=== PATIENT | female | born 1985 | race Caucasian/White ===

== ENCOUNTER 2017-01-26 15:17 | Emergency (ER) | payer MEDICAID ==
[~2017-01-26] VITALS: Ht 167.6 cm; Wt 79.8 kg
[~2017-01-26 15:17] MED LIST: BACTRIM DS 8001 TAB PO; CELEXA10 MG PO; IRON TABLETS325 MG PO; KEFLEX 500MG.500 MG PO; NIFEDIPINE XL 330 MG PO; NOMEDS XX; PERCOCET 325 MG1 TA4 PO; PHENERGAN 25MG.25 M1 PO; PYRIDIUM 200MG200 MG PO; VICODIN 5/500 T1 TAB PO; VOLTAREN75 MG PO
--- OUTSIDE RECORDS SUMMARY | 2017-01-26 15:25 | External Medical Summary Rpt | CCD ---
Author Author [facility] Address Unknown Phone Purpose Continuity of Care Document - through 2016
--- OUTSIDE RECORDS SUMMARY | 2017-01-26 15:25 | External Medical Summary Rpt | CCD ---
Author Author [employer] Organization [employer] Address Unknown Phone Unavailable Purpose Continuity of Care Document - through 2016
--- OUTSIDE RECORDS SUMMARY | 2017-01-26 15:25 | External Medical Summary Rpt | CCD ---
Demographics Preferred Language Hebrew Marital Status Unknown Amish Affiliation Unknown Race Unknown Ethnic Group Unknown Author Author , [facility] [employer] Address Unknown Phone Immunization No patient found.
--- OUTSIDE RECORDS SUMMARY | 2017-01-26 15:25 | External Medical Summary Rpt | CCD ---
Demographics Preferred Language Kinyarwanda Marital Status Unknown Jewish Affiliation Unknown Race Unknown Ethnic Group Unknown Author Author , [facility] [employer] Address Unknown Phone Immunization No patient found.
--- OUTSIDE RECORDS SUMMARY | 2017-01-26 15:26 | External Medical Summary Rpt ---
Author Author REYES Galvez, [employer] Organization [employer] Address Unknown Phone Unavailable
[2017-01-26 15:40] LABS: URINE BILIRUBIN - DIPSTICK 1+ (NEG); URINE BLOOD 2+ (NEG)
--- NOTE | 2017-01-26 15:49 | Urgent Treatment Center Report ---
History of Present Issue Date/Time Seen by Provider 01/26/17 1541 Visit Reason Pt arrived:Walked Presenting Problem:STATES BLOOD IN URINE BEGAN THIS AM Location if Accident: Onset of symptoms date/time:/ or onset unknown for:MEDICAL HX UNKNOWN Have you (or family members/close friends) recently traveled outside the [place]? N If Yes, where/when: Have you had exposure to infectious disease within the past month? TB? Other? Specify: Patient state that she was in the shower this morning when she began to have pain in her right lower pelvic/abdominal area State that pain was sharp and felt like a ripping pain States that she had to Urinate and when she did she noticed that it looked like blood in the toilet. States that she had recently just got off her period so she got a mirror to check herself and notice that she was dripping what appeared to be blood. States that she has continued to have the sharp ripping pain all day and feeling like she had to go to the bathroom then only urinating small amounts and noticed some blood on the tissue earlier. State that she has some burning with urination however pain has not moved and is constant in her right lower abdominal/pelvic area. ALLERGIES Coded Allergies: NO KNOWN ALLERGIES (11/11/16) Home Medications Reported Medications No Known Home Medications History Medical History General CAD? No Angina: No [place]: No Hypertension? No Hyperlipidemia? No CHF? No DVT? No PE? No COPD? No Asthma? No Anemia? No GERD? No Gastric ulcers? No GI Bleed? No Hernia? No Thyroid Problems? No Hypothyroidism? No CVA? No Seizures? No Diabetes? No Renal Insuffiency? No UTI? No Stones? No BPH? No GB Disease: No Nephritic Syndrome? No Asplenia? No Hepatitis? No Sickle Cell Disease? No Arthritis? No Migraines? No Cataracts? No Glaucoma? No MRSA? No HIV? No TB? No Anxiety? No Depression? No Cancer? No More? 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 Physical Exam Vital Signs Vital Signs Date Time Temp Pulse Resp B/P Pulse O2 O2 Flow FiO2 Ox Delivery Rate 01/26 1541 98.9 90 16 108/85 98 01/26 1526 98.9 90 16 108/85 98 General Appearance normal appearance, WD/WN, no apparent distress Respiratory Status Yes: trachea midline, chest symmetrical, non tender chest. No: respiratory distress. Lung Sounds bilateral: normal breath sounds, lungs clear. Cardiovascular normal exam, regular rate/rhythm Gastrointestinal normal bowel sounds, normal exam, non tender Neurologic alert, normal exam, oriented x 3 Medical Decision Making LABS/Meds/Orders Pt receiving controlled substance in ED? No Results/Orders Laboratory Tests 01/26/17 1528: Urine Color DARK YELLOW, Urine Appearance Clear, Urine pH 6.0, Ur Specific [place] 1.030, Urine Protein TRACE H, Urine Ketones NEGATIVE, Urine Blood 2+ H , Urine Nitrate NEGATIVE, Urine Bilirubin 1+ H, Urine Urobilinogen 2.0, Ur Leukocyte Esterase NEGATIVE, Urine Glucose NEGATIVE Current Medication Orders Sig/Iván Start time Last Medication Dose Route Stop Time Status Admin Sodium Chloride 10 ML PRN PRN 01/26 1545 AC IV 01/27 1540 Orders Procedure Date/time Status DIET-NOTHING BY MOUTH 01/[address] ABD/PELVIS REQ 01/26 1541 Active IV SALINE LOCK 01/26 1541 Active URINALYSIS/COMPLETE 01/26 1541 Active LIPASE 01/26 1541 Active CBC WITH AUTO DIFF 01/26 1541 Active CHEM 12 PROFILE 01/26 1541 Active UTC URINE DIPSTICK 01/26 1528 Complete Progress [facility] Progress Notes Comment UA completed in [place]. Patient transfered to ER for further work up by Dr Bueno if warrented. Patient report give and patient placed in room 8 Departure Departure Time of Disposition 1547 Disposition Still a Patient Clinical Impression Primary Impression: Blood in urine Qualifiers: Hematuria type: unspecified type Qualified Code: R31.9 - Hematuria, unspecified Condition STABLE Prescriptions Current Visit Scripts No Known Home Medications at 1541
--- NOTE | 2017-01-26 15:49 | Urgent Treatment Center Report ---
History of Present Issue Date/Time Seen by Provider 01/26/17 1541 Visit Reason Pt arrived:Walked Presenting Problem:STATES BLOOD IN URINE BEGAN THIS AM Location if Accident: Onset of symptoms date/time:/ or onset unknown for:MEDICAL HX UNKNOWN Have you (or family members/close friends) recently traveled outside the [place]? N If Yes, where/when: Have you had exposure to infectious disease within the past month? TB? Other? Specify: Patient state that she was in the shower this morning when she began to have pain in her right lower pelvic/abdominal area State that pain was sharp and felt like a ripping pain States that she had to Urinate and when she did she noticed that it looked like blood in the toilet. States that she had recently just got off her period so she got a mirror to check herself and notice that she was dripping what appeared to be blood. States that she has continued to have the sharp ripping pain all day and feeling like she had to go to the bathroom then only urinating small amounts and noticed some blood on the tissue earlier. State that she has some burning with urination however pain has not moved and is constant in her right lower abdominal/pelvic area. ALLERGIES Coded Allergies: NO KNOWN ALLERGIES (11/11/16) Home Medications Reported Medications No Known Home Medications History Medical History General CAD? No Angina: No [place]: No Hypertension? No Hyperlipidemia? No CHF? No DVT? No PE? No COPD? No Asthma? No Anemia? No GERD? No Gastric ulcers? No GI Bleed? No Hernia? No Thyroid Problems? No Hypothyroidism? No CVA? No Seizures? No Diabetes? No Renal Insuffiency? No UTI? No Stones? No BPH? No GB Disease: No Nephritic Syndrome? No Asplenia? No Hepatitis? No Sickle Cell Disease? No Arthritis? No Migraines? No Cataracts? No Glaucoma? No MRSA? No HIV? No TB? No Anxiety? No Depression? No Cancer? No More? 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 Physical Exam Vital Signs Vital Signs Date Time Temp Pulse Resp B/P Pulse O2 O2 Flow FiO2 Ox Delivery Rate 01/26 1541 98.9 90 16 108/85 98 01/26 1526 98.9 90 16 108/85 98 General Appearance normal appearance, WD/WN, no apparent distress Respiratory Status Yes: trachea midline, chest symmetrical, non tender chest. No: respiratory distress. Lung Sounds bilateral: normal breath sounds, lungs clear. Cardiovascular normal exam, regular rate/rhythm Gastrointestinal normal bowel sounds, normal exam, non tender Neurologic alert, normal exam, oriented x 3 Medical Decision Making LABS/Meds/Orders Pt receiving controlled substance in ED? No Results/Orders Laboratory Tests 01/26/17 1528: Urine Color DARK YELLOW, Urine Appearance Clear, Urine pH 6.0, Ur Specific [place] 1.030, Urine Protein TRACE H, Urine Ketones NEGATIVE, Urine Blood 2+ H , Urine Nitrate NEGATIVE, Urine Bilirubin 1+ H, Urine Urobilinogen 2.0, Ur Leukocyte Esterase NEGATIVE, Urine Glucose NEGATIVE Current Medication Orders Sig/Iván Start time Last Medication Dose Route Stop Time Status Admin Sodium Chloride 10 ML PRN PRN 01/26 1545 AC IV 01/27 1540 Orders Procedure Date/time Status DIET-NOTHING BY MOUTH 01/[address] ABD/PELVIS REQ 01/26 1541 Active IV SALINE LOCK 01/26 1541 Active URINALYSIS/COMPLETE 01/26 1541 Active LIPASE 01/26 1541 Active CBC WITH AUTO DIFF 01/26 1541 Active CHEM 12 PROFILE 01/26 1541 Active UTC URINE DIPSTICK 01/26 1528 Complete Progress [facility] Progress Notes Comment UA completed in [place]. Patient transfered to ER for further work up by Dr Bueno if warrented. Patient report give and patient placed in room 8 Departure Departure Time of Disposition 1547 Disposition Still a Patient Clinical Impression Primary Impression: Blood in urine Qualifiers: Hematuria type: unspecified type Qualified Code: R31.9 - Hematuria, unspecified Condition STABLE Prescriptions Current Visit Scripts No Known Home Medications at 154
--- NOTE | 2017-01-26 15:58 | Emergency Room Report ---
History of Present Illness Time Seen by 153Nando Presenting Problem in Triage Pt arrived:Walked Presenting Problem:STATES BLOOD IN URINE BEGAN THIS AM ADDENDUM: PT SENT FROM [facility] TO R/O RENAL CALCULI; Onset of symptoms date/time:/ or onset unknown for:MEDICAL HX UNKNOWN Treatment Prior to Arrival: URINALYSIS AT [facility] Provided by:NURSE PRACTITIONER Sepsis Risk Assessment: Temp: 98.9 B/P: 108/85 MAP: 92 Pulse: 90 Resp: 16 Recent fever? N Clinical Suspician of Infection? Y Mental Status: 1 - Regular (Normal Baseline) Sepsis Risk:Low Sepsis Risk Have you (or family members/close friends) recently traveled outside the [place]? N If Yes, where/when: Have you had exposure to infectious disease within the past month? TB? Other? Specify: Comment Patient was seen in the urgent treatment center and sent to the emergency department for evaluation for hematuria. She states that on Wednesday 4 days ago she had some generalized lower back pain and vomiting. That went away and now today she has gross hematuria and a sensation of pain at her urethral meatus. No fever. Slight suprapubic discomfort. No history of kidney stones. She has some dysuria. ALLERGIES Coded Allergies: NO KNOWN ALLERGIES (01/26/17) History Medical History General CAD? No Angina: No [place]: No Hypertension? No Hyperlipidemia? No CHF? No DVT? No PE? No COPD? No Asthma? No Anemia? No GERD? No Gastric ulcers? No GI Bleed? No Hernia? No Thyroid Problems? No Hypothyroidism? No CVA? No Seizures? No Diabetes? No Renal Insuffiency? No End Stage Renal Disease? No UTI? No Stones? No BPH? No GB Disease: No Nephritic Syndrome? No Asplenia? No Hepatitis? No Sickle Cell Disease? No Arthritis? No Migraines? No Cataracts? No Glaucoma? No MRSA? No HIV? No TB? No Anxiety? No Depression? No Cancer? No More? 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 Musculoskeletal back pain Physical Exam Vital Signs Vital Signs Date Time Temp Pulse Resp B/P Pulse O2 O2 Flow FiO2 Ox Delivery Rate 01/26 1823 98.9 63 14 124/74 96 01/26 1808 63 14 124/74 96 01/26 1541 98.9 90 16 108/85 98 01/26 1526 98.9 90 16 108/85 98 General Appearance no apparent distress Eye Exam - bilateral eye normal exam, bilateral eye PERRL, bilateral eye EOMI Ear, Nose, Throat hearing grossly normal, normal ENT inspection Neck normal inspection, non-tender, supple, full range of motion Respiratory Status Yes: trachea midline, chest symmetrical. No: respiratory distress. Lung Sounds bilateral: normal breath sounds, lungs clear. Cardiovascular normal exam, regular rate/rhythm, no peripheral edema, no gallop, no JVD, no murmur, no rub, normal peripheral pulses Peripheral Pulses Pulses normal Yes Gastrointestinal normal bowel sounds, soft, no organomegaly, no guarding, no rebound, tenderness (suprapubic) Back no CVA tenderness Extremities non-tender, normal range of motion, normal inspection Neurologic alert, normal exam, oriented x 3 Mental status normal mood/affect Skin intact, normal color, warm/dry Medical Decision Making LABS/Meds/Orders Pt receiving controlled substance in ED? No Results/Orders Laboratory Tests 01/26/17 1553: Sodium 142, Potassium 3.5, Chloride 106, Carbon Dioxide 26, BUN 10, Creatinine 0.9, Estimated Creat Clear 115, Estimated GFR (MDRD) 74, Glucose 107 H, Calcium 8.7, Total Bilirubin 0.3, AST 20, ALT 22, Alkaline Phosphatase 88, Total Protein 7.4, Albumin 3.9, Globulin 3.5 H, Albumin/Globulin Ratio 1.1, Lipase 132, WBC 9.2, RBC 4.78, Hgb 14.4, Hct 42.7, MCV 89.3, RDW 11.9, Plt Count 307, MPV 7.5, Gran % 54.6, Gran # 5.0, Lymphocytes % 37.5, Monocytes % 5.0, Eosinophils % 2.2, Basophils % 0.6, Lymphocytes # 3.4, Monocytes # 0.5, Eosinophils # 0.2, Basophils # 0.1, PUBS MCHC 33.8, MCH 30.2 01/26/17 1530: Urine Color YELLOW, Urine Appearance CLEAR, Urine pH 6.0, Ur Specific [place] >= 1.030, Urine Protein NEGATIVE, Urine Ketones NEGATIVE, Urine Blood 1+ H, Urine Nitrate NEGATIVE, Urine Bilirubin NEGATIVE, Urine Urobilinogen 1.0, Ur Leukocyte Esterase NEGATIVE, Urine RBC OCC, Urine WBC OCC, Ur Squamous Epith Cells 3-5, Calcium Oxalate Crystal 3+, Urine Bacteria 1+, Urine Mucus 1+, Urine Glucose NEGATIVE 01/26/17 1528: Urine Color DARK YELLOW, Urine Appearance Clear, Urine pH 6.0, Ur Specific [place] 1.030, Urine Protein TRACE H, Urine Ketones NEGATIVE, Urine Blood 2+ H , Urine Nitrate NEGATIVE, Urine Bilirubin 1+ H, Urine Urobilinogen 2.0, Ur Leukocyte Esterase NEGATIVE, Urine Glucose NEGATIVE Current Medication Orders Sig/Iván Start time Last Medication Dose Route Stop Time Status Admin Sodium Chloride 10 ML PRN PRN 01/26 1545 DCD IV 01/27 1540 Orders Procedure Date/time Status DIET-NOTHING BY MOUTH 01/26 D Active CULTURE, URINE 01/26 1755 Active URINE 01/[address] ABD/PELVIS REQ 01/26 1541 Complete IV SALINE LOCK 01/26 1541 Active URINALYSIS/COMPLETE 01/26 1541 Complete LIPASE 01/26 1541 Complete CBC WITH AUTO DIFF 01/26 1541 Complete CHEM 12 PROFILE 01/26 1541 Complete UTC URINE DIPSTICK 01/26 1528 Complete XRAY/CT/US XRAY/CT/US CT abdomen, pelvis Comment CT scan interpreted by ad radiologist. Faxed report received and reviewed: No acute process Progress - patient declines pelvic or perineal exam. states she looked with a mirror this a.m. and did not see anything abnormal. Cause of sx unclear. Will tx for cystitis and have pt f/u for cult results and further eval. Departure Departure Disposition DC Home or Self Care(routine) Clinical Impression Primary Impression: Hematuria Qualifiers: Hematuria type: unspecified type Qualified Code: R31.9 - Hematuria, unspecified Secondary Impressions: Dysuria Condition STABLE Patient Instructions DI for Dysuria -- Adult, DI for Hematuria Additional Instructions Follow-up with primary care physician in 2 days for culture results. Follow-up with primary care physician if not improved in one week. Prescriptions Current Visit Scripts Phenazopyridine HCl (Pyridium) 200 MG PO TID #9 TAB Ciprofloxacin HCl (Cipro 500MG TAB) 500 MG PO BID #20 TAB ED Critical Care Critical Care No at 1944
[2017-01-26 16:11] LABS: LYMPH # 3.4 K/mm3 (0.7-4.5); LYMPH % 37.5 % (10-50.0)
[2017-01-26 16:16] LABS: HEMOGLOBIN 14.4 g/dL (12.2-16.2)
[2017-01-26 16:48] LABS: URINE BILIRUBIN - DIPSTICK NEGATIVE (NEG); URINE BLOOD 1+ (NEG)
[2017-01-26] MEDS ORDERED: CIPRO 500MG TA500 MG PO (18:16)
[2017-01-26] MEDS ORDERED: PYRIDIUM200 M2 PO (18:16)
--- NOTE | 2017-01-26 18:22 | RADIOLOGY REPORT PS360 ---
CT ABD PELVIS W/O CONTRAST CLINICAL INDICATION: Lower abdominal pain with hematuria ABD PAIN ORDERING PHYSICIAN: Max Bueno MD PATIENT AGE: 31 years COMPARISON: 11/05/2010 TECHNIQUE: Axial images obtained with sagittal and coronal reformats. PROCEDURE: Oral Contrast: None IV Contrast: None . FINDINGS: Lower thorax: Calcified granuloma is present in the right middle lobe ABDOMEN: Liver: No masses or biliary dilatation. Gallbladder: Gallbladder is contracted. No calcified stones Pancreas: No masses or peripancreatic fluid collections. Spleen: Unremarkable. Adrenals: Unremarkable Kidneys/ureters: No masses. No renal calculi. No hydronephrosis. No perinephric fluid collections. No ureteral dilatation or obvious ureteral calculi. Stomach bowel: Nondistended. No obvious mass or thickening. Appendix: No evidence of appendicitis. PELVIS: Reproductive: Unremarkable . Bilateral tubal ligation. The uterus is anteverted and retroflexed Bladder: Nondistended. No obvious stones or masses. ABDOMEN & PELVIS: Peritoneum: No abnormal fluid collections. No obvious inflammatory changes. No free air. Lymph nodes: No enlarged lymph nodes apparent. Vasculature: No evidence of abdominal aortic aneurysm. No retroperitoneal hemorrhage evident. Bones: No acute fracture IMPRESSION: 1. No acute abdominal or pelvic findings 2. No evidence of obstructing renal or ureteral calculi
[2017-01-26 18:23] VITALS: BP 124/74
== END 2017-01-26 18:24 | disposition home or self-care (01) ==
LOC: UTC 15:17 → ER 15:19 → UTC 15:19 → ER 18:24
PROVIDERS: Emergency Medicine; Nurse Practitioner
DX: R31.9 Hematuria, unspecified (principal); F17.210 Nicotine dependence, cigarettes, uncomplicated